=== PATIENT | male | born 1930 | race Caucasian/White ===

== ENCOUNTER 2017-05-31 10:42 | Emergency (ER) | payer MEDICARE, OTHER ==
[2017-05-31 10:48] VITALS: TEMP 97.5
[2017-05-31] MEDS ORDERED: DIPH,PERTUS(ACELL)TETVAC-LF 0.5 ML VIAL IM ONE (11:01)
[2017-05-31 11:33] VITALS: BP 115/64; PULSE 57; RESP 18
--- NOTE | 2017-05-31 11:42 | XR ---
EXAMINATION TYPE: XR finger LT DATE OF EXAM: 05/31/2017 CLINICAL HISTORY: pain Left fourth digit. TECHNIQUE: 3 views of the fourth digit are submitted. COMPARISON: None FINDINGS: No displaced fracture is seen with certainty. Joint spaces are well-preserved. Soft tissue injury at the tip of the fourth digit. No radiopaque foreign body identified. IMPRESSION: No acute displaced fracture or dislocation. Soft tissue injury.
--- NOTE | 2017-05-31 11:58 | ED ---
General Adult HPI - General Chief complaint: Wound/Laceration Stated complaint: laceration on left hand ring finger Time Seen by Provider: 05/31/17 10:58 Source: patient, RN notes reviewed Mode of arrival: ambulatory - History of Present Illness Initial comments: 87-year-old male presents with injury to the left fourth finger. Patient was trimming his hedges and his electric may bounced off of a larger limb and hit the tip of his left finger. He denies any other injury. Patient is uncertain of his tetanus status. - Related Data Home Medications Medication Instructions Recorded Confirmed Aspirin [Adult Low Dose Aspirin EC] 81 mg PO DAILY 01/17/16 05/31/17 Cholecalciferol [Vitamin D3] 2,000 unit PO DAILY 01/17/16 05/31/17 Vit C/E/Zn/Coppr/Lutein/Zeaxan 2 cap PO DAILY 01/17/16 05/31/17 [Preservision Areds 2 Softgel] carBAMazepine [Carbatrol] 300 mg PO BID 01/17/16 05/31/17 metroNIDAZOLE [Metrogel 1%] 1 applic TOPICAL DAILY PRN 01/17/16 05/31/17 Furosemide [Lasix] 20 mg PO DAILY 06/29/16 05/31/17 Biotin 5 mg PO DAILY 10/03/16 05/31/17 Cranberry Fruit Extract [Cranberry] 1,000 mg PO DAILY 10/03/16 05/31/17 Folic Acid 0.8 mg PO DAILY 10/03/16 05/31/17 Midodrine [ProAmatine] 5 mg PO TID 10/03/16 05/31/17 Silodosin [Rapaflo] 8 mg PO PC-SUPPER 10/03/16 05/31/17 Lisinopril [Zestril] 1.25 mg PO DAILY 05/31/17 05/31/17 Previous Rx's Medication Instructions Recorded Atorvastatin [Lipitor] 40 mg PO HS #30 tab 10/05/16 Clopidogrel [Plavix] 75 mg PO DAILY #30 tab 10/05/16 Nitroglycerin Sl Tabs [Nitrostat] 0.4 mg SUBLINGUAL Q5M PRN #25 tab 10/05/16 Cephalexin [Keflex] 500 mg PO Q8HR #15 cap 05/31/17 Allergies Allergy/AdvReac Type Severity Reaction Status Date / Time No Known Allergies Allergy Verified 05/31/17 11:25 Review of Systems ROS Statement: Those systems with pertinent positive or pertinent negative responses have been documented in the HPI. ROS Other: All systems not noted in ROS Statement are negative. Past Medical History Past Medical History: Coronary Artery Disease (CAD), Cancer, Hearing Disorder / Deafness, Hyperlipidemia, Hypertension, Myocardial Infarction ([place]), Neurologic Disorder, Osteoarthritis (OA), Renal Disease Additional Past Medical History / Comment(s): SKIN CA Last Myocardial Infarction Date:: >20YRS History of Any Multi-Drug Resistant Organisms: None Reported Past Surgical History: Heart Catheterization With Stent Additional Past Surgical History / Comment(s): EGD, COLONOSCOPY. BILAT CATARACTS Past Anesthesia/Blood Transfusion Reactions: No Reported Reaction Date of Last Stent Placement:: >20YRS Past Psychological History: No Psychological Hx Reported Smoking Status: Never smoker - Past Family History Brother(s) Family Medical History: Cancer (Lung cancer, embossed or impressed lettering painter) Father Family Medical History: Deep Vein Thrombosis (DVT) (From lower extremity fractures age 77 disease) Mother Family Medical History: Osteoarthritis (OA) ( from hip fracture complications) Sister(s) Family Medical History: No Reported History Son(s) Family Medical History: No Reported History General Exam General appearance: alert, in no apparent distress Head exam: Present: atraumatic, normocephalic Eye exam: Present: normal appearance, PERRL ENT exam: Present: normal exam, mucous membranes moist Neck exam: Present: normal inspection, full ROM Respiratory exam: Present: normal lung sounds bilaterally. Absent: respiratory distress Cardiovascular Exam: Present: regular rate, normal rhythm GI/Abdominal exam: Present: soft. Absent: distended, tenderness Extremities exam: Present: normal capillary refill, other (Patient is irregular laceration over the distal phalanx on the left fourth digit.) Neurological exam: Present: alert, oriented X3 Psychiatric exam: Present: normal affect, normal mood Skin exam: Present: warm, dry Course Vital Signs 05/31/17 05/31/17 10:45 11:32 Temperature 97.5 F L Pulse Rate 68 57 L Respiratory 17 18 Rate Blood Pressure 133/70 115/64 O2 Sat by Pulse 95 97 Oximetry Procedures - Laceration Laceration #1 Consent Obtained: verbal consent Time Out Performed: Yes Indication: laceration Site: hand Description: irregular, contaminated Anesthetic Used: lidocaine 1% Anesthesia Technique: local infiltration Pre-repair: wound explored, irrigated extensively, deep structures intact Size of Sutures: 4-0 Number of Sutures: 5 Technique: simple, interrupted Patient Tolerated Procedure: well Medical Decision Making - Medical Decision Making 87-year-old male presenting with laceration over the left fourth finger. Laceration is irrigated by myself, and repaired with nylon sutures. Injury was from a machine trimmer. Patient will be given prophylactic antibiotics. He is instructed on signs and symptoms of infection. He has an appointment with his primary care physician in the next 2-3 days for wound evaluation. He will have his sutures removed in 10-14 days. Disposition Clinical Impression: Laceration Disposition: HOME SELF-CARE Condition: Good Instructions: Laceration (ED) Prescriptions: Cephalexin [Keflex] 500 mg PO Q8HR #15 cap Referrals: Jeanine Brock MD [Primary Care Provider] - 1-2 days
--- NOTE | 2017-06-02 03:54 | CDI ---
Documentation Clarification OP Dear Colton Powell MD, Please do addendum to ED report that describes length and depth of the laceration repair finger. Thank you, obdulio triana fence supervisor. if you have any questions,please contact director of coding at [phone]. MTDD
== END 2017-05-31 12:15 | disposition home or self-care (01) ==
LOC: EC 10:42
DX: S61.215A Laceration without foreign body of left ring finger without damage to nail, initial encounter (principal); I25.10 Atherosclerotic heart disease of native coronary artery without angina pectoris; I10 Essential (primary) hypertension; I25.2 Old myocardial infarction; M19.90 Unspecified osteoarthritis, unspecified site; Z23 Encounter for immunization; Z79.82 Long term (current) use of aspirin; Z79.899 Other long term (current) drug therapy; Z85.828 Personal history of other malignant neoplasm of skin; Z95.5 Presence of coronary angioplasty implant and graft; W29.3XXA Contact with powered garden and outdoor hand tools and machinery, initial encounter; Y93.H2 Activity, gardening and landscaping
CPT/HCPCS: 12001; 90471; 90715; 99283

== ENCOUNTER → 2017-07-26 | Outpatient (CLI) | payer MEDICARE, OTHER ==
[2017-07-26 13:40] LABS: Blood Urea Nitrogen 13 mg/dL (9-20); Non-African American GFR(MDRD) >60 (>60 ml/min/1.73 sqM)
--- NOTE | 2017-07-26 14:44 | CT ---
EXAMINATION TYPE: CT facial bones wo con DATE OF EXAM: 07/26/2017 COMPARISON: NONE HISTORY: nerve pain rt facial near his nose/ burning sensation CT DLP: 461.6 mGycm Automated exposure control for dose reduction was used. TECHNIQUE: CT scan of the sinuses is performed without contrast, axial images are obtained, coronal r eformatted images are also reviewed. FINDINGS: There are changes of chronic ethmoidal sinusitis. Small mucous tension cyst or polyp within the left maxillary sinus. Nasal septal deviation noted. There is a mucous retention cyst or polyp wi thin the inferior maxillary antrum on the right. Ostiomeatal complex patent bilaterally. Oropharynx and nasopharynx are symmetric. Visualized parotid glands and symmetric in appearance. Mastoid air cells have been normal appearance. Intraorbital structures are intact and symmetric. Intracranial atherosclerotic changes noted. IMPRESSION: 1. Changes of mild chronic sinusitis.
--- NOTE | 2017-07-26 14:49 | CT ---
EXAMINATION TYPE: CT brain wo/w con DATE OF EXAM: 07/26/2017 COMPARISON: 06/29/2016 HISTORY: Pain Vascular calcifications are seen. CT DLP: 1965.40 mGycm Automated exposure control for dose reduction was used. CONTRAST: CT scan of the head is performed with IV Contrast, patient injected with 100 mL of Omnipaque 300. FINDINGS: There is diffuse cerebral atrophy. There is a area of encephalomalacia involving the right parietal r egion which is stable. Nonspecific cyst density within the white matter is most typical remote microvascular ischemia. No enhancing mass or midline shift. IMPRESSION: Degenerative and remote ischemic change.
== END | disposition home or self-care (01) ==
LOC: RADCTMAIN 12:56
PROVIDERS: ATTEND Family Medicine
DX: G31.9 Degenerative disease of nervous system, unspecified (principal); J32.9 Chronic sinusitis, unspecified; G44.51 Hemicrania continua
CPT/HCPCS: 82565; 84520; 70486; 70470; 36415; Q9967

== ENCOUNTER → 2018-04-05 | Outpatient (CLI) | payer MEDICARE, OTHER | END | disposition home or self-care (01) | LOC: LABWHC1 14:07 | PROVIDERS: ATTEND Internal Medicine Nephrology | DX: I10 Essential (primary) hypertension (principal) | CPT/HCPCS: 36415; 82533 ==

== ENCOUNTER → 2018-04-21 | Outpatient (CLI) | payer MEDICARE, OTHER ==
--- NOTE | 2018-04-21 14:54 | MR ---
EXAMINATION TYPE: MR abdomen wo/w con DATE OF EXAM: 04/21/2018 COMPARISON: CT abdomen 12/12/[address] chest dated 09/28/2016 HISTORY: Hepatic lesion on CT Multiplanar MultiSpin echo imaging of the abdomen was performed without and with contrast medium. Contrast:7.5ml gadavist FINDINGS: Liver: Hepatic lesion at the dome of the liver measures 2.7 x 2.1 x 2.0 cm. On T2-weighted data set t he lesion demonstrates decreased signal intensity. T1-weighted data set demonstrates decreased signal . Following administration of contrast there is complete enhancement noted immediately and on delayed images. There is no evidence for typical peripheral nodular discontinuous enhancement. Therefore the findings are nonspecific and could reflect atypical hemangioma. Hepatocellular carcinoma not exclude d. No additional hepatic lesions are seen at this time. The gallbladder is free of cholelithiasis. Pancreas: No distinct mass or inflammatory process. Spleen: No splenomegaly or splenic lesions seen. Graph adrenal glands: The normal limits Kidneys: Large exophytic renal cyst lower pole left kidney. Large parapelvic cyst left kidney. Small renal cortical cysts seen bilaterally. IMPRESSION: 1. Nonspecific hepatic lesion as discussed above which could reflect atypical hemangioma versus hepat ocellular carcinoma. The lesion is unchanged dating back to 2016 and continued progress studies recom mended with repeat CT or MRI in 6 months.
== END | disposition home or self-care (01) ==
LOC: RADMRIMAIN 12:14
PROVIDERS: ATTEND Family Medicine
DX: K76.9 Liver disease, unspecified (principal)
CPT/HCPCS: 82565; 74183; 36415; A9581

== ENCOUNTER → 2018-04-29 | Outpatient (CLI) | payer MEDICARE, OTHER ==
--- NOTE | 2018-05-01 07:51 | NM ---
Nuclear medicine hepatobiliary scan. HISTORY: Pain. DOSAGE: The patient received 1.7 micrograms of CCK and 5.1 mCi of Technetium 99m Choletec. FINDINGS: There is normal hepatic extraction. The gallbladder is seen by 20 minutes. There is bilia ry to bowel clearance by 50 minutes. Ejection fraction is 93%. IMPRESSION: 1. No evidence of cholecystitis. 2. Ejection fraction of 93% can be associated with hyperdynamic gallbladder. Correlate clinically.
== END ==
LOC: RADNMMAIN 14:32
PROVIDERS: ATTEND Family Medicine
DX: R10.811 Right upper quadrant abdominal tenderness (principal)
CPT/HCPCS: 78227; A9537; J2805

== ENCOUNTER → 2018-05-05 | Outpatient (CLI) | payer MEDICARE, OTHER ==
--- NOTE | 2018-05-05 14:35 | US ---
EXAMINATION TYPE: US venous doppler duplex LE RT DATE OF EXAM: 05/05/2018 2:27 PM COMPARISON: NONE CLINICAL HISTORY: rt lower ext, pain and swelling M79.604. pt on blood thinners for heart attack last year SIDE PERFORMED: rt TECHNIQUE: The lower extremity deep venous system is examined utilizing real time linear array sonog mary with graded compression, doppler sonography and color-flow sonography. VESSELS IMAGED: External Iliac Vein (EIV) Common Femoral Vein Deep Femoral Vein Greater Saphenous Vein * Femoral Vein Popliteal Vein Small Saphenous Vein * Proximal Calf Veins (* superficial vessels) Right Leg: Negative for DVT IMPRESSION: 1. No diagnostic evidence of DVT as visualized.
== END ==
LOC: RADUSWWP 14:02
PROVIDERS: ATTEND Family Medicine
DX: M79.604 Pain in right leg (principal)

== ENCOUNTER 2018-09-06 09:52 | Day surgery (SDC) | payer MEDICARE, OTHER ==
[2018-09-02 14:51] VITALS: BMI 24.7
[2018-09-06] MEDS ORDERED: LACTATED RINGERS 1,000 ML IV ONE (11:22)
[2018-09-06 11:33] VITALS: RESP 16; TEMP 98.2
[2018-09-06] MEDS ORDERED: LIDOCAINE 1% INJ 10MG/ML (20 ML MDV) ONE (11:42)
[2018-09-06] MEDS ORDERED: PROPOFOL 10 MG/ML 20 ML VIAL IV ONE (11:42)
--- NOTE | 2018-09-06 12:00 | P.OP ---
Date of Procedure: 09/06/18 Preoperative Diagnosis: History of bleeding gastric ulcer Postoperative Diagnosis: Evidence of healing pre pyloric ulcer Procedure(s) Performed: EGD with biopsy Anesthesia: MAC Surgeon: Devon Guillen Condition: stable Disposition: same day Description of Procedure: Patient brought to the Endo suite placed in left lateral decubitus position underwent sedation per department of anesthesia timeout performed correct patient correct procedure correct site was verified. Endoscope was then placed through the oropharynx down the esophagus with ease under direct visualization. It was passed through this Mohan into the first and second portion of the duodenum. Slowly withdrawn and stomach no abnormalities are noted in the duodenum. There was evidence of a healing prepyloric gastric ulcer. This was biopsied. The scope was retroflexed and all sampson and body of the stomach were inspected no other abnormalities were noted no significant have a hernia was noted the scope was withdrawn to the GE junction no significant abnormalities were noted a slowly withdrawn to the esophagus and no significant abnormalities are noted patient tolerated procedure well no apparent complications
[2018-09-06 12:44] VITALS: BP 154/65; PULSE 45
== END 2018-09-06 13:00 | disposition home or self-care (01) ==
LOC: ORWHC2ENDO 09:52
PROVIDERS: ATTEND Student in an Organized Health Care Education/Training Program
DX: K29.60 Other gastritis without bleeding (principal); E78.00 Pure hypercholesterolemia, unspecified; I25.2 Old myocardial infarction; I25.10 Atherosclerotic heart disease of native coronary artery without angina pectoris; I25.84 Coronary atherosclerosis due to calcified coronary lesion; I13.0 Hypertensive heart and chronic kidney disease with heart failure and stage 1 through stage 4 chronic kidney disease, or unspecified chronic kidney disease; N18.9 Chronic kidney disease, unspecified; I50.9 Heart failure, unspecified; N42.9 Disorder of prostate, unspecified; Z79.02 Long term (current) use of antithrombotics/antiplatelets; Z79.82 Long term (current) use of aspirin; Z79.899 Other long term (current) drug therapy
CPT/HCPCS: 88305; 43239; J2001; J2704

== ENCOUNTER → 2018-09-12 | Outpatient (CLI) | payer MEDICARE, OTHER ==
[2018-09-12 10:29] LABS: Appearance,Urine Clear (Clear); Bilirubin,Urine Negative (Negative); Blood,Urine Negative (Negative); Color,Urine Yellow; Glucose,Urine (UA) Negative (Negative); Ketones,Urine Trace (Negative); Leukocyte Esterase,Urine Negative (Negative); Nitrite,Urine Negative (Negative); PH, Urine 6.5 (5.0-8.0); Protein,Urine Negative (Negative); Specific Gravity,Urine 1.017 (1.001-1.035); Urobilinogen,Urine <2.0 mg/dL (<2.0)
[2018-09-12 10:54] LABS: Basophils # (A) 0.1 k/uL (0-0.2); Basophils % (A) 2 %; Eosinophils # (A) 0.3 k/uL (0-0.7); Eosinophils % (A) 5 %; HCT 42.6 % (39.0-53.0); HGB 14.4 gm/dL (13.0-17.5); Lymphocytes # (A) 1.2 k/uL (1.0-4.8); Lymphocytes % (A) 24 %; MCH 34.2 pg (25.0-35.0); MCHC 33.7 g/dL (31.0-37.0); MCV 101.4 fL (80.0-100.0); Macrocytosis Slight; Mean Platelet Volume 6.9; Monocytes # (A) 0.3 k/uL (0-1.0); Monocytes % (A) 6 %; Neutrophils # (A) 3.1 k/uL (1.3-7.7); Neutrophils % (A) 61 %; Platelet Count 190 k/uL (150-450); RDW 13.7 % (11.5-15.5)
[2018-09-12 17:33] LABS: Iron Saturation 37.82 (15.00-50.00)
[2018-09-12 17:42] LABS: Vitamin D 25 Hydroxy 34.8 ng/mL (30.0-100.0)
[2018-09-12 17:50] LABS: Calcium 9.3 mg/dL (8.7-10.3); Magnesium 2.1 mg/dL (1.5-2.4); Phosphorus 3.7 mg/dL (2.4-5.1); Potassium 4.9 mmol/L (3.5-5.5); Uric Acid 4.6 mg/dL (3.7-8.7)
[2018-09-12 18:08] LABS: Parathyroid Hormone Intact 22.3 pg/mL (14.0-72.0)
== END ==
LOC: LABWHC1 09:15
PROVIDERS: ATTEND Internal Medicine Nephrology
DX: D64.9 Anemia, unspecified (principal); E55.9 Vitamin D deficiency, unspecified; N25.81 Secondary hyperparathyroidism of renal origin; M10.9 Gout, unspecified; N39.0 Urinary tract infection, site not specified; I95.9 Hypotension, unspecified
CPT/HCPCS: 36415; 80048; 81003; 82306; 82533; 82728; 83540; 83550; 83735; 83970; 84100; 84550; 85025

== ENCOUNTER → 2018-10-26 | Outpatient (CLI) | payer MEDICARE, OTHER ==
[2018-10-26 10:34] LABS: HCT 43.9 % (39.0-53.0); HGB 14.6 gm/dL (13.0-17.5); MCH 33.9 pg (25.0-35.0); MCHC 33.3 g/dL (31.0-37.0); MCV 101.8 fL (80.0-100.0); Macrocytosis Slight; Mean Platelet Volume 7.1; Platelet Count 173 k/uL (150-450); RBC 4.31 m/uL (4.30-5.90); RDW 13.4 % (11.5-15.5); WBC 3.9 k/uL (3.8-10.6)
[2018-10-26 17:46] LABS: Albumin 4.2 g/dL (3.80-4.90); Albumin/Globulin Ratio 2.33 (1.20-2.10); Calcium 9.6 mg/dL (8.7-10.3); Globulin 1.8 g/dL (2.1-3.7); LDL Cholesterol,Calculated 71.8 mg/dL (0.0-131.0); Potassium 4.9 mmol/L (3.5-5.5); Total Bilirubin 1.6 mg/dL (0.2-1.2); VLDL Calculation 16.2 mg/dL (5.00-40.00)
[2018-10-26 17:52] LABS: T4, Free (Free Thyroxine) 1.1 ng/dL (0.80-1.80)
[2018-10-26 18:14] LABS: Parathyroid Hormone Intact 45.8 pg/mL (14.0-72.0)
[2018-10-26 19:09] LABS: Alpha Fetoprotein, Tumor Mkr <2.5 ng/mL (0.0-7.9)
== END ==
LOC: LABWHC1 09:16
PROVIDERS: ATTEND Family Medicine
DX: E78.5 Hyperlipidemia, unspecified (principal); D18.03 Hemangioma of intra-abdominal structures; N18.3 Chronic kidney disease, stage 3 (moderate)
CPT/HCPCS: 36415; 80053; 80061; 82105; 82378; 82550; 82607; 82728; 83970; 84134; 84439; 84443; 85027; 86301

== ENCOUNTER 2018-11-02 14:33 | Emergency (ER) | payer MEDICARE, OTHER ==
[2018-11-02] MEDS ORDERED: SODIUM CHLORIDE 0.9% 1,000 ML IV STA (15:25)
--- NOTE | 2018-11-02 15:33 | ED ---
General Adult HPI - General Chief complaint: Dizziness Stated complaint: Fall, dizzy Source: patient, RN notes reviewed Mode of arrival: ambulatory Limitations: no limitations - History of Present Illness Initial comments: Patient's an 88-year-old male presented to the emergency room today with a chief complaint of dizziness that occurred this afternoon. Patient states that he's had dizzy episodes in the past that some unusual for him. States he usually goes from a sitting to standing position as diseases for a few seconds to minutes. He states this afternoon he was sitting on the edge of bed and began feeling dizzy last approximately 15 minutes. states that she had to help him with a walker. States that his legs seemed very weak at the time. also states that he did have a fall last week. Patient states he was walking into the kitchen when he fell and hit a chair. He did have a cut to the right side of the forehead. Does admit that he is on a blood thinner. Patient also admits that his had some abdominal pain over the last several months but has been following up with family doctor. he states there is no change in his abdominal pain. Patient also admits that he maybe saw some blood in his underwear but has not seated in his urine. Patient denies any recent fever, chills, shortness of breath, chest pain, back pain, nausea or vomiting, numbness or tingling, dysuria or hematuria, constipation or diarrhea, headaches or visual changes, or any other complaints. - Related Data Home Medications Medication Instructions Recorded Confirmed Cholecalciferol [Vitamin D3] 2,000 unit PO DAILY 01/17/16 11/02/18 Vit C/E/Zn/Coppr/Lutein/Zeaxan 1 cap PO BID 01/17/16 11/02/18 [Preservision Areds 2 Softgel] Furosemide [Lasix] 20 mg PO MOWEFR 06/29/16 11/02/18 Folic Acid 0.8 mg PO DAILY 10/03/16 11/02/18 Silodosin [Rapaflo] 8 mg PO TUWE 10/03/16 11/02/18 Atorvastatin [Lipitor] 20 mg PO DAILY 09/02/18 11/02/18 Biotin 5,000 mcg PO DAILY 09/02/18 11/02/18 Cyanocobalamin [Vitamin B-12] 500 mcg PO DAILY 09/02/18 11/02/18 Propranolol [Inderal] 10 mg PO BID 09/02/18 11/02/18 lamoTRIgine [LaMICtal] 100 mg PO DAILY 09/02/18 11/02/18 DULoxetine HCL [Cymbalta] 30 mg PO DAILY 11/02/18 11/02/18 Dicyclomine [Bentyl] 10 mg PO BID 11/02/18 11/02/18 Isosorbide Mononitrate ER [Imdur] 30 mg PO DAILY 11/02/18 11/02/18 Lisinopril [Zestril] 2.5 mg PO DAILY 11/02/18 11/02/18 Midodrine HCl [ProAmatine] 10 mg PO TID 11/02/18 11/02/18 Pantoprazole [Protonix] 40 mg PO BID 11/02/18 11/02/18 rOPINIRole HCL [Requip] 0.25 mg PO BID 11/02/18 11/02/18 Previous Rx's Medication Instructions Recorded Nitroglycerin Sl Tabs [Nitrostat] 0.4 mg SUBLINGUAL Q5M PRN #25 tab 10/05/16 Aspirin [Adult Low Dose Aspirin EC] 81 mg PO DAILY #0 12/14/17 Clopidogrel [Plavix] 75 mg PO DAILY #30 tab 12/14/17 QUEtiapine [SEROquel] 12.5 mg PO DAILY #15 tab 11/02/18 Allergies Allergy/AdvReac Type Severity Reaction Status Date / Time No Known Allergies Allergy Verified 11/02/18 16:36 Review of Systems ROS Statement: Those systems with pertinent positive or pertinent negative responses have been documented in the HPI. ROS Other: All systems not noted in ROS Statement are negative. Past Medical History Past Medical History: Coronary Artery Disease (CAD), Cancer, Hearing Disorder / Deafness, Hyperlipidemia, Hypertension, Myocardial Infarction ([place]), Osteoarthritis ([place]) Additional Past Medical History / Comment(s): SKIN CA, GROWTH ON KIDNEY, DIZZINESS, HX FALLS, BP DROPS SOMETIMES WHEN HE GETS UP. , SORES ON LEGS & ARMS. , NOV 2017- BLEEDING STOMACH ULCER., STATES HE IS HAVING STOMACH PAIN . Last Myocardial Infarction Date:: 2015 History of Any Multi-Drug Resistant Organisms: None Reported Past Surgical History: Heart Catheterization, Heart Catheterization With Stent Additional Past Surgical History / Comment(s): EGD, COLONOSCOPY, CATARACTS Past Anesthesia/Blood Transfusion Reactions: No Reported Reaction Date of Last Stent Placement:: 1996 Past Psychological History: No Psychological Hx Reported Smoking Status: Never smoker Past Alcohol Use History: None Reported Past Drug Use History: None Reported - Past Family History Brother(s) Family Medical History: Cancer Father Family Medical History: Deep Vein Thrombosis (DVT) Mother Family Medical History: Osteoarthritis (OA) Sister(s) Family Medical History: No Reported History Son(s) Family Medical History: No Reported History General Exam - General Exam Comments Initial Comments: General: The patient is awake and alert, in no distress, and does not appear acutely ill. Eye: Pupils are equal, round and reactive to light, extra-ocular movements are intact. No nystagmus. There is normal conjunctiva bilaterally. No signs of icterus. Ears, nose, mouth and throat: There are moist mucous membranes and no oral lesions. Neck: The neck is supple, there is no tenderness or JVD. Cardiovascular: There is a regular rate and rhythm. No murmur, rub or gallop is appreciated. Respiratory: Lungs are clear to auscultation, respirations are non-labored, breath sounds are equal. No wheezes, stridor, rales, or rhonchi. Gastrointestinal: Soft, non-distended, non-tender abdomen without masses or organomegaly noted. There is no rebound or guarding present. No CVA tenderness. Bowel sounds are unremarkable. Musculoskeletal: Normal ROM, no tenderness. Strength 5/5. Sensation intact. Pulses equal bilaterally 2+. Neurological: A&O x 3. CN II-XII intact, There are no obvious motor or sensory deficits. Coordination appears grossly intact. Speech is normal. Skin: Skin is warm and dry and no rashes or lesions are noted. Psychiatric: Cooperative, appropriate mood & affect, normal judgment. Limitations: no limitations Course Vital Signs 11/02/18 11/02/18 11/02/18 14:47 14:50 14:51 Temperature Pulse Rate 61 64 Pulse Rate [ Sheet Metal Technician ] Respiratory 18 Rate Blood Pressure 116/54 116/54 Blood Pressure [Sitting] Blood Pressure [Standing] Blood Pressure [Supine] O2 Sat by Pulse 95 96 97 Oximetry 11/02/18 11/02/18 11/02/18 15:00 15:10 15:20 Temperature Pulse Rate 63 63 60 Pulse Rate [ Sheet Metal Technician ] Respiratory Rate Blood Pressure Blood Pressure [Sitting] Blood Pressure [Standing] Blood Pressure [Supine] O2 Sat by Pulse 96 94 L 96 Oximetry 11/02/18 11/02/18 11/02/18 15:30 15:40 16:00 Temperature 97.9 F Pulse Rate 65 66 Pulse Rate [ Sheet Metal Technician ] Respiratory Rate Blood Pressure 111/62 Blood Pressure [Sitting] Blood Pressure [Standing] Blood Pressure [Supine] O2 Sat by Pulse 96 Oximetry 11/02/18 11/02/18 11/02/18 16:22 16:24 16:26 Temperature Pulse Rate Pulse Rate [ 58 L 63 67 Sheet Metal Technician ] Respiratory 16 16 16 Rate Blood Pressure Blood Pressure 125/70 [Sitting] Blood Pressure 113/62 [Standing] Blood Pressure 139/71 [Supine] O2 Sat by Pulse Oximetry 11/02/18 11/02/18 18:41 19:03 Temperature 97.9 F Pulse Rate 66 78 Pulse Rate [ Sheet Metal Technician ] Respiratory 18 16 Rate Blood Pressure 130/84 130/73 Blood Pressure [Sitting] Blood Pressure [Standing] Blood Pressure [Supine] O2 Sat by Pulse 98 98 Oximetry EKG Findings - EKG Comments: EKG Findings:: EKG performed at 1448: Shows normal sinus rhythm with first- degree AV block at [address] interval 472. QRS 80. QT/QTc 424/430. No acute ST change. Medical Decision Making - Medical Decision Making 88-year-old male presented to the emergency room today with dizziness. states she's had dizziness in the past but today's episode lasted longer. He is symptomatically here in the emergency room. Does admit to headache injury that occurred earlier in the week. 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 Confluent white matter changes similar to prior chronic. Chronic cerebral atrophy and is also seen. No acute intracranial process. Patient labs been reviewed here in the emergency room unremarkable. Urinalysis reviewed no sign of blood. No sign of infection. Patient does admit that he thought there was a spot of blood on his underwear. Patient chest x-ray is unremarkable acute changes. EKG shows normal sinus rhythm with no acute abnormality. Resting comfortably. Case was discussed with his PCP Dr. Brock. Recommends Seroquel 25 mg half tablet at dinner. He is comfortable being discharged at this time to follow up his family physician. He is advised return here to the emergency room symptoms increase or worsen or for any other concerns. - Lab Data Result diagrams: 11/02/18 15:00 11/02/18 15:00 Lab Results 11/02/18 11/02/18 11/02/18 Range/Units 15:00 15:00 15:00 WBC 4.4 (3.8-10.6) k/uL RBC 4.04 L (4.30-5.90) m/uL Hgb 13.3 (13.0-17.5) gm/dL Hct 41.0 (39.0-53.0) % MCV 101.5 H (80.0-100.0) fL MCH 32.9 (25.0-35.0) pg MCHC 32.4 (31.0-37.0) g/dL RDW 13.5 (11.5-15.5) % Plt Count 182 (150-450) k/uL Neutrophils % 61 % Lymphocytes % 25 % Monocytes % 5 % Eosinophils % 5 % Basophils % 1 % Neutrophils # 2.7 (1.3-7.7) k/uL Lymphocytes # 1.1 (1.0-4.8) k/uL Monocytes # 0.2 (0-1.0) k/uL Eosinophils # 0.2 (0-0.7) k/uL Basophils # 0.1 (0-0.2) k/uL Macrocytosis Slight PT (9.0-12.0) sec INR (<1.2) APTT (22.0-30.0) sec Sodium 140 (137-145) mmol/L Potassium 4.5 (3.5-5.1) mmol/L Chloride 106 (98-107) mmol/L Carbon Dioxide 28 (22-30) mmol/L Anion Gap 6 mmol/L BUN 15 (9-20) mg/dL Creatinine 1.06 (0.66-1.25) mg/dL Est GFR (CKD-EPI)AfAm 72 (>60 ml/min/1.73 sqM) Est GFR (CKD-EPI)NonAf 62 (>60 ml/min/1.73 sqM) Glucose 117 H (74-99) mg/dL Calcium 9.4 (8.4-10.2) mg/dL Total Bilirubin 1.0 (0.2-1.3) mg/dL AST 26 (17-59) U/L ALT 22 (21-72) U/L Alkaline Phosphatase 37 L (38-126) U/L Total Creatine Kinase 38 L (55-170) U/L CK-MB (CK-2) <0.2 (0.0-2.4) ng/mL CK-MB (CK-2) Rel Index Troponin I <0.012 (0.000-0.034) ng/mL Total Protein 6.0 L (6.3-8.2) g/dL Albumin 3.6 (3.5-5.0) g/dL Amylase 74 (30-110) U/L Lipase 137 (23-300) U/L Urine Color Urine Appearance (Clear) Urine pH (5.0-8.0) Ur Specific [place]ac[place] (1.001-1.035) Urine Protein (Negative) Urine Glucose (UA) (Negative) Urine Ketones (Negative) Urine Blood (Negative) Urine Nitrite (Negative) Urine Bilirubin (Negative) Urine Urobilinogen (<2.0) mg/dL Ur Leukocyte Esterase (Negative) 11/02/18 11/02/18 Range/Units 15:00 17:00 WBC (3.8-10.6) k/uL RBC (4.30-5.90) m/uL Hgb (13.0-17.5) gm/dL Hct (39.0-53.0) % MCV (80.0-100.0) fL MCH (25.0-35.0) pg MCHC (31.0-37.0) g/dL RDW (11.5-15.5) % Plt Count (150-450) k/uL Neutrophils % % Lymphocytes % % Monocytes % % Eosinophils % % Basophils % % Neutrophils # (1.3-7.7) k/uL Lymphocytes # (1.0-4.8) k/uL Monocytes # (0-1.0) k/uL Eosinophils # (0-0.7) k/uL Basophils # (0-0.2) k/uL Macrocytosis PT 10.8 (9.0-12.0) sec INR 1.0 (<1.2) APTT 22.5 (22.0-30.0) sec Sodium (137-145) mmol/L Potassium (3.5-5.1) mmol/L Chloride (98-107) mmol/L Carbon Dioxide (22-30) mmol/L Anion Gap mmol/L BUN (9-20) mg/dL Creatinine (0.66-1.25) mg/dL Est GFR (CKD-EPI)AfAm (>60 ml/min/1.73 sqM) Est GFR (CKD-EPI)NonAf (>60 ml/min/1.73 sqM) Glucose (74-99) mg/dL Calcium (8.4-10.2) mg/dL Total Bilirubin (0.2-1.3) mg/dL AST (17-59) U/L ALT (21-72) U/L Alkaline Phosphatase (38-126) U/L Total Creatine Kinase (55-170) U/L CK-MB (CK-2) (0.0-2.4) ng/mL CK-MB (CK-2) Rel Index Troponin I (0.000-0.034) ng/mL Total Protein (6.3-8.2) g/dL Albumin (3.5-5.0) g/dL Amylase (30-110) U/L Lipase (23-300) U/L Urine Color Yellow Urine Appearance Clear (Clear) Urine pH 6.0 (5.0-8.0) Ur Specific [place] 1.009 (1.001-1.035) Urine Protein Negative (Negative) Urine Glucose (UA) Negative (Negative) Urine Ketones Negative (Negative) Urine Blood Negative (Negative) Urine Nitrite Negative (Negative) Urine Bilirubin Negative (Negative) Urine Urobilinogen <2.0 (<2.0) mg/dL Ur Leukocyte Esterase Negative (Negative) Disposition Clinical Impression: Dizziness, Head injury Disposition: HOME SELF-CARE Condition: Good Instructions: Dizziness (ED) Additional Instructions: Please follow-up with family doctor in the next 2 days of symptoms have not improved. Please return to emergency room if the symptoms increase or worsen or for any other concerns. Prescriptions: QUEtiapine [SEROquel] 12.5 mg PO DAILY #15 tab Is patient prescribed a controlled substance at d/c from ED?: No Referrals: Jeanine Brock MD [Primary Care Provider] - 1-2 days Time of Disposition: 18:02
[2018-11-02 15:41] LABS: Basophils # (A) 0.1 k/uL (0-0.2); Basophils % (A) 1 %; Eosinophils # (A) 0.2 k/uL (0-0.7); Eosinophils % (A) 5 %; HGB 13.3 gm/dL (13.0-17.5); Lymphocytes # (A) 1.1 k/uL (1.0-4.8); Lymphocytes % (A) 25 %; MCH 32.9 pg (25.0-35.0); MCHC 32.4 g/dL (31.0-37.0); MCV 101.5 fL (80.0-100.0); Macrocytosis Slight; Mean Platelet Volume 7.3; Monocytes # (A) 0.2 k/uL (0-1.0); Monocytes % (A) 5 %; Neutrophils # (A) 2.7 k/uL (1.3-7.7); Neutrophils % (A) 61 %; Platelet Count 182 k/uL (150-450); RBC 4.04 m/uL (4.30-5.90); RDW 13.5 % (11.5-15.5); WBC 4.4 k/uL (3.8-10.6)
[2018-11-02 15:49] LABS: Albumin 3.6 g/dL (3.5-5.0); Calcium 9.4 mg/dL (8.4-10.2); Potassium 4.5 mmol/L (3.5-5.1)
[2018-11-02 15:50] LABS: Partial Thromboplastin Time 22.5 sec (22.0-30.0); Prothrombin Time 10.8 sec (9.0-12.0)
[2018-11-02 15:57] LABS: Creatine Kinase 38 U/L (55-170)
[2018-11-02 16:00] VITALS: TEMP 97.9
[2018-11-02 16:10] LABS: Creatine Kinase MB <0.2 ng/mL (0.0-2.4); Troponin I <0.012 ng/mL (0.000-0.034)
--- NOTE | 2018-11-02 16:15 | CT ---
EXAMINATION TYPE: CT brain wo con DATE OF EXAM: 11/02/2018 COMPARISON: 07/26/2017 HISTORY: Dizziness with multiple falls CT DLP: 1082.4 mGycm Automated exposure control for dose reduction was used. TECHNIQUE: CT scan of the head is performed without contrast. 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 Encephalomalacia of the righ t parietal lobe is also seen similar to the prior. Lacunar injury of the right caudate nucleus and le ft anterior limb of the internal capsule is also seen. These appear old. There is no acute intracranial hemorrhage or midline shift identified. There is diffuse ventricular a nd sulcal prominence consistent with diffuse age-related cerebral atrophy. There is low-attenuation in the periventricular white matter consistent with chronic small vessel ischemic change. The globes are intact and r. There is polypoid mucosal thickening within the right maxillary sinus measuring 1. 2 cm. Minimal mucosal thickening is also seen within the dependent right maxillary sinus. Remaining v isualized paranasal sinuses and mastoid air cells appear well aerated. Calcification is redemonstrate d along the tentorium cerebelli. 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 Confluent white matter change is similar to the prior and chronic. Chronic cerebral atrophy is also seen. No acute intracranial process.
--- NOTE | 2018-11-02 16:47 | XR ---
EXAMINATION TYPE: XR chest 2V DATE OF EXAM: 11/02/2018 COMPARISON: 10/03/2016 HISTORY: Dizziness TECHNIQUE: Frontal and lateral views of the chest are obtained. FINDINGS: There is slight coarsening of interstitial markings. There is no heart failure. Thoracic a russell is atheromatous. Costophrenic angles are clear. IMPRESSION: No active cardiopulmonary disease. No change compared to old exam.
[2018-11-02 17:31] LABS: Appearance,Urine Clear (Clear); Bilirubin,Urine Negative (Negative); Blood,Urine Negative (Negative); Color,Urine Yellow; Glucose,Urine (UA) Negative (Negative); Ketones,Urine Negative (Negative); Leukocyte Esterase,Urine Negative (Negative); Nitrite,Urine Negative (Negative); Protein,Urine Negative (Negative); Specific Gravity,Urine 1.009 (1.001-1.035); Urobilinogen,Urine <2.0 mg/dL (<2.0)
[2018-11-02 19:04] VITALS: BP 130/73; PULSE 78; RESP 16
== END 2018-11-02 19:14 | disposition home or self-care (01) ==
LOC: EC 14:33
DX: S09.90XA Unspecified injury of head, initial encounter (principal); R42 Dizziness and giddiness; G93.89 Other specified disorders of brain; I25.10 Atherosclerotic heart disease of native coronary artery without angina pectoris; E78.5 Hyperlipidemia, unspecified; I10 Essential (primary) hypertension; I25.2 Old myocardial infarction; M19.90 Unspecified osteoarthritis, unspecified site; Z85.828 Personal history of other malignant neoplasm of skin; Z79.899 Other long term (current) drug therapy; Z95.5 Presence of coronary angioplasty implant and graft; W18.09XA Striking against other object with subsequent fall, initial encounter; Y93.01 Activity, walking, marching and hiking; Y92.000 Kitchen of unspecified non-institutional (private) residence as the place of occurrence of the external cause
CPT/HCPCS: 36415; 70450; 71046; 80053; 81003; 82150; 82550; 82553; 83690; 84484; 85025; 85610; 85730; 93005; 96360; 99284

== ENCOUNTER → 2018-11-11 | Outpatient (CLI) | payer MEDICARE, OTHER ==
--- NOTE | 2018-12-17 18:19 | EM ---
EVENT MONITOR AGE:: 88 SEX:: M INDICATIONS:: Dizziness. RESULTS: The event monitor shows sinus rhythm and mild sinus bradycardia, mostly at night. A very prolonged HI interval, close to 400 milliseconds. 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 Occasional PVCs. Occasional 2-1 AV block and 1 pause of 2.8 seconds with a heart rate of 38 beats per minute in the early of the morning. Underlying QRS is narrow. MMODL / IJN: [id number] /
== END | disposition home or self-care (01) ==
LOC: RADECHMAIN 11:48
PROVIDERS: ATTEND Family Medicine
DX: I44.1 Atrioventricular block, second degree (principal); R00.1 Bradycardia, unspecified
CPT/HCPCS: 93270; 93271

== ENCOUNTER → 2018-12-20 | Outpatient (CLI) | payer MEDICARE, OTHER | END | disposition home or self-care (01) | LOC: LABWHC1 11:50 | PROVIDERS: ATTEND Internal Medicine Interventional Cardiology | DX: Z01.812 Encounter for preprocedural laboratory examination (principal); N18.2 Chronic kidney disease, stage 2 (mild); E03.9 Hypothyroidism, unspecified | CPT/HCPCS: 36415; 82565; 84443; 84520 ==

== ENCOUNTER → 2018-12-30 | Outpatient (CLI) | payer MEDICARE ==
--- NOTE | 2018-12-30 13:28 | MR ---
EXAMINATION TYPE: MR abdomen wo/w con DATE OF EXAM: 12/30/2018 COMPARISON: MR abdomen dated 04/21/2018, CT chest dated 09/28/[address] abdomen pelvis dated 8 HISTORY: Abnormal findings on biliary tract CONTRAST: Standard multiplanar, multisequence MRI departmental protocol utilizing 7.5 mL intravenous Gadavist g adolinium contrast. FINDINGS: Measuring approximately 2.2 x 2.0 cm, unchanged in size from the prior of 04/21/2018. This le mago follows the enhancement of the portal vein and hepatic vein and appears to have a feeding hepati c vein and portal vein such as on series 701 image [phone] (hepatic vein) and images 324 through 36 9 (portal vein). This is confirmed on coronal postcontrast T1 fat sat image 48. This appears to follo w enhancement of the portal and hepatic veins on all sequences including delayed imaging. This does n ot demonstrate arterial enhancement but does demonstrate cortical venous abdomen inhomogeneous enhanc ement. No new suspicious hepatic lesions are seen. No washout is present of this lesion. Gallbladder demonstrates no evidence of cholelithiasis. There are multiple left renal and renal sinus cysts, the largest emanating from the lower pole measur ing up to 6 cm, similar to the prior. Multiple T2 hyperintense nonenhancing right renal cysts are als o seen. Pancreas is unremarkable in enhancement and morphology. Spleen is unremarkable. Bowel is nondilated. Adrenal glands are unremarkable without nodularity or thickening. IMPRESSION: Solitary hepatic lesion is stable in size in comparison to the prior MRI of 04/21/2018 and seen on the CT chest of 2015. 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 No washout is seen of this lesion or capsular enhancement to suggest hepatocellular carcinoma and there is no T2 correlate. No T2 hyperintensity of a typical hemangioma. Focal nodular hyperplasi a is a less likely consideration. Continued follow-up could be performed to evaluate for long-term st ability.
== END | disposition home or self-care (01) ==
LOC: RADMRIMAIN 10:33
PROVIDERS: ATTEND Family Medicine
DX: K76.89 Other specified diseases of liver (principal)
CPT/HCPCS: 74183; A9585